=== PATIENT | male | born 1940 | race Caucasian/White ===

== ENCOUNTER 2019-06-28 09:55 | Inpatient (IN) | payer MEDICARE, BC ==
[~2019-06-28] VITALS: Ht 188 cm; Wt 86.4 kg
[2019-06-28] MEDS ORDERED: normal saline 1000ml 500 ML IV ONE (10:19)
[2019-06-28] MEDS ORDERED: aspirin 81mg tab.chew PO ONE (10:20)
[2019-06-28] MEDS ORDERED: diltiazem-NS 100mg/100ml 100 ML IV SCH ×2 (10:20→15:20)
[2019-06-28] MEDS ORDERED: diltiazem 5mg/ml 5ml inj. IV ONE (10:20)
[2019-06-28 10:45] LABS: BASOPHILS % (AUTO) 0.1 % (0-1); EOSINOPHILS % (AUTO) 0.2 % (0-6); HEMATOCRIT 50.6 % (42.0-52.0); HEMOGLOBIN 16.8 g/dl (14.0-17.9); LYMPHOCYTES # (AUTO) 0.3 X10'3 (1.1-4.8); LYMPHOCYTES % (AUTO) 2.6 % (21-51); MEAN CORPUSCULAR HGB CONC 33.1 g/dL (33.0-36.5); MEAN CORPUSCULAR VOLUME 81.5 FL (78-98); MEAN PLATELET VOLUME 8.4 FL (7.4-10.4); MONOCYTES # (AUTO) 0.8 X10'3 (0-0.9); NEUTROPHILS # (AUTO) 12.1 X10'3 (1.8-7.7); NEUTROPHILS % (AUTO) 91.1 % (42-75); PLATELET COUNT 60 X10'3 (140-440); RED BLOOD COUNT 6.21 X10'6 (4.70-6.10); RED CELL DISTRIBUTION WIDTH 15.5 % (11.5-14.5); WHITE BLOOD COUNT 13.2 X10'3 (4.5-11.0)
--- NOTE | 2019-06-28 10:46 | NUR ---
MD EDMOND MADE AWARE OF 5MG CARDIZEM GIVEN AT 1025, ORDERED TO NOT GIVE REMAINING 15MG. HR HAD DROPPED FROM 180 TO 117 PRIOR TO IV PUSH CARDIZEM. BP NOW 101/70, HR 109 WITH MD MOTT AWARE.
[2019-06-28 11:04] LABS: ALANINE AMINOTRANSFERASE 31 U/L (12-78); ALBUMIN/GLOBULIN RATIO 0.6 (1.1-1.5); ALKALINE PHOSPHATASE 111 IU/L (46-116); ANION GAP 26 (8-16); ASPARTATE AMINO TRANSFERASE 26 U/L (10-37); BILIRUBIN,TOTAL 0.6 MG/DL (0.1-1.0); BLOOD UREA NITROGEN 144 MG/DL (7-18); BUN/CREATININE RATIO 15.5 (5.4-32.0); CALCIUM 8.6 MG/DL (8.5-10.1); CHLORIDE 90 MMOL/L (99-107); CREATININE 9.32 MG/DL (0.60-1.10); GLUCOSE 187 MG/DL (70-104); MAGNESIUM 2.2 MG/DL (1.5-2.4); POTASSIUM 4.8 MMOL/L (3.5-5.1); SODIUM 131 MMOL/L (135-145); TOTAL PROTEIN 7.8 G/DL (6.4-8.2); eGFR 5 ML/MIN
--- NOTE | 2019-06-28 11:05 | NUR ---
MD De La Fuente at bedside, reported improvement in circulatory status.
[2019-06-28 11:07] LABS: TOTAL CARBON DIOXIDE 14.6 MMOL/L (24-32)
[2019-06-28 11:12] LABS: TOTAL CELLS COUNTED 100
[2019-06-28 11:15] LABS: ANISOCYTOSIS 1+; BURR CELLS 2+; PLATELET ESTIMATE DECREASED; TOXIC GRANULATION 1+; TOXIC VACUOLATION 2+
[2019-06-28] MEDS ORDERED: normal saline 1000ML IV soln IVB ONE (12:05)
[2019-06-28] MEDS ORDERED: ASPI-1053 PO (12:13)
--- NOTE | 2019-06-28 12:22 | NUR ---
SPOKE WITH MD EDMOND CONCERNING NS 1L BOLUS, LUNGS WET TO AUSCULTATION, ELEVATED CREATININE, AND BNP. MD EDMOND ORDERED FOR NS TO BE INFUSED AT 150ML/HR
[2019-06-28] MEDS: normal saline 1000ml 1,000 ML IV SCH ×3 (12:30→21:19)
[2019-06-28] MEDS ORDERED: potassium Cl 20 mEq SR tablet PO PRN ×2 (13:00)
[2019-06-28] MEDS ORDERED: mag hydrox/Alum hydrox/simeth 30ml oral suspension PO PRN (13:00)
[2019-06-28] MEDS ORDERED: magnesium 2GM in 50ml NS 50 ML IV PRN (13:00)
[2019-06-28] MEDS ORDERED: acetaminophen 325mg tablet PO PRN ×2 (13:00)
[2019-06-28] MEDS ORDERED: ondansetron/PF 4mg/2ml inj IV PRN (13:00)
[2019-06-28] MEDS ORDERED: CefTRIAXone 2gm/D5W 50ml 50 ML IV ONE (13:00)
[2019-06-28] MEDS ORDERED: magnesium hydroxide 30ml (MOM) UD suspension PO PRN (13:00)
[2019-06-28] MEDS ORDERED: magnesium Cl slow-release 64mg tablet PO PRN (13:00)
[2019-06-28] MEDS ORDERED: magnesium 4gm in 100ml NS 100 ML IV PRN (13:00)
[2019-06-28] MEDS ORDERED: potassium CL 10mEq/100ml bag 100 ML IV PRN ×2 (13:00)
--- NOTE | 2019-06-28 13:01 | NUR ---
FC inserted. Some difficulty upon insertion. Pt denies pain.
[2019-06-28 13:43] LABS: CLARITY,URINE CLOUDY (Clear); COLOR,URINE YELLOW (Yellow); GLUCOSE, URINE NEGATIVE (Neg); KETONES,URINE NEGATIVE (Neg); LEUKOCYTE ESTERASE ,URINE MODERATE (Neg); NITRITES, URINE NEGATIVE (Neg); OCCULT BLOOD,URINE LARGE (Neg); PH,URINE 8.5 (4.8-8.0); PROTEIN,URINE 100 mg/dl (Neg); UROBILINOGEN,URINE 0.2 E.U/dL (0.2-1.0)
[2019-06-28 13:48] LABS: UA COLLECTION TYPE FOLEY CATH
[2019-06-28 13:56] LABS: BACTERIA,URINE 4+ /HPF (Neg); MUCUS STRANDS NONE SEEN /LPF (Neg); RBC,URINE TNTC /HPF (0-2); SQUAMOUS EPITHELIAL CELL,UR FEW /LPF (FEW); WBC CLUMPS,URINE MANY /HPF (NEGATIVE); WBC,URINE TNTC /HPF (0-4)
--- NOTE | 2019-06-28 14:17 | NUR ---
PAGER ID: [phone] MESSAGE: please call me on pcu regarding new patient from RICHIE Hudson
[2019-06-28 15:51] VITALS: BP 108/71
[2019-06-28] MEDS ORDERED: heparin, porcine 5000 units/ml vial SQ SCH (16:00)
[2019-06-28 18:00] VITALS: BP 114/74
[2019-06-28] MEDS: lactobacillus rhamnosus 10,000 MMU CELLS/CAPSULE PO SCH (19:27)
[2019-06-28 19:37] LABS: ALBUMIN 2.4 G/DL (3.4-5.0); ANION GAP 19 (8-16); BLOOD UREA NITROGEN 149 MG/DL (7-18); BUN/CREATININE RATIO 18.2 (5.4-32.0); CALCIUM 7.7 MG/DL (8.5-10.1); CHLORIDE 98 MMOL/L (99-107); CREATININE 8.19 MG/DL (0.60-1.10); GLUCOSE 145 MG/DL (70-104); POTASSIUM 4.3 MMOL/L (3.5-5.1); SODIUM 133 MMOL/L (135-145); TOTAL CARBON DIOXIDE 16.2 MMOL/L (24-32); eGFR 6 ML/MIN
[2019-06-28 22:00] VITALS: BP 108/72
[2019-06-29 02:00] VITALS: BP 120/76
--- NOTE | 2019-06-29 02:11 | NUR ---
Patient converted from sinus to afib with rate in 150s-160s. Dr. Shi called and order for 5mg Cardizem push was administered. Will continue to monitor.
[2019-06-29] MEDS ORDERED: diltiazem 5mg/ml 5ml inj. IV ONE ×2 (02:30→04:15)
--- NOTE | 2019-06-29 03:07 | NUR ---
Patient rhythm remaining in afib with rate 120s-130s, pt asymptomatic. Dr. Colon notified and no new orders. Will continue to monitor.
[2019-06-29] MEDS: normal saline 1000ml 1,000 ML IV SCH ×3 (04:28→20:22)
--- NOTE | 2019-06-29 04:28 | NUR ---
Pt heart rate sustaining 140s-150s, BP 97/69. Dr. Shi notified and 5mg cardizem iv push ordered and administered. Will continue to monitor
--- NOTE | 2019-06-29 05:59 | NUR ---
[place] documentation: I have reviewed and agree with all interventions, assessments performed and documented by Amita PEREIRA. [place] Medication Administration: For this medication-pass time frame, all medication were reviewed, dispensed, administered and documented per hospital policy by Amita PEREIRA.
[2019-06-29 06:07] LABS: BASOPHILS % (AUTO) 0.2 % (0-1); EOSINOPHILS # (AUTO) 0.1 X10'3 (0-0.9); HEMATOCRIT 44.1 % (42.0-52.0); LYMPHOCYTES # (AUTO) 1.1 X10'3 (1.1-4.8); LYMPHOCYTES % (AUTO) 10.9 % (21-51); MEAN CORPUSCULAR HEMOGLOBIN 27.2 PG (27.0-31.0); WHITE BLOOD COUNT 9.8 X10'3 (4.5-11.0)
[2019-06-29 06:12] LABS: EOSINOPHILS % (AUTO) 0.7 % (0-6); MEAN CORPUSCULAR HGB CONC 33.9 g/dL (33.0-36.5); MEAN CORPUSCULAR VOLUME 80.2 FL (78-98); MEAN PLATELET VOLUME 8.6 FL (7.4-10.4); MONOCYTES # (AUTO) 1.9 X10'3 (0-0.9); MONOCYTES % (AUTO) 19.4 % (2-12); NEUTROPHILS # (AUTO) 6.8 X10'3 (1.8-7.7); NEUTROPHILS % (AUTO) 68.8 % (42-75); PLATELET COUNT 59 X10'3 (140-440); RED BLOOD COUNT 5.51 X10'6 (4.70-6.10); RED CELL DISTRIBUTION WIDTH 15.3 % (11.5-14.5)
[2019-06-29 06:15] LABS: ALBUMIN 2.2 G/DL (3.4-5.0); ANION GAP 18 (8-16); BLOOD UREA NITROGEN 123 MG/DL (7-18); BUN/CREATININE RATIO 26.1 (5.4-32.0); CALCIUM 8.1 MG/DL (8.5-10.1); CHLORIDE 106 MMOL/L (99-107); CREATININE 4.71 MG/DL (0.60-1.10); GLUCOSE 114 MG/DL (70-104); MAGNESIUM 2.4 MG/DL (1.5-2.4); POTASSIUM 3.5 MMOL/L (3.5-5.1); SODIUM 140 MMOL/L (135-145); TOTAL CARBON DIOXIDE 15.6 MMOL/L (24-32); eGFR 12 ML/MIN
--- NOTE | 2019-06-29 06:25 | NUR ---
Problems reprioritized. Patient report given, questions answered & plan of care reviewed with Prasanth PEREIRA.
--- NOTE | 2019-06-29 06:26 | NUR ---
Patient in room PCU 3016. I have received report from Bety PEREIRA and had the opportunity to ask questions and assume patient care.
[2019-06-29] MEDS: K and/or MAG REPLACEMENT MC SCH (06:36)
[2019-06-29 07:45] VITALS: BP 108/69
--- NOTE | 2019-06-29 07:48 | NUR ---
Call from telemetry rn stating pt converted from Afib to SR
[2019-06-29] MEDS: heparin, porcine 5000 units/ml vial SQ SCH ×3 (07:49→22:23)
[2019-06-29] MEDS: lactobacillus rhamnosus 10,000 MMU CELLS/CAPSULE PO SCH ×2 (07:54→20:37)
[2019-06-29] MEDS: CefTRIAXone 2gm/D5W 50ml 50 ML IV SCH (07:54)
[2019-06-29 11:00] VITALS: BP 123/82
[2019-06-29 15:00] VITALS: BP 135/86
[2019-06-29 15:09] LABS: ALBUMIN 2.2 G/DL (3.4-5.0); ANION GAP 12 (8-16); BLOOD UREA NITROGEN 109 MG/DL (7-18); BUN/CREATININE RATIO 31.6 (5.4-32.0); CALCIUM 7.5 MG/DL (8.5-10.1); CHLORIDE 110 MMOL/L (99-107); CREATININE 3.45 MG/DL (0.60-1.10); GLUCOSE 145 MG/DL (70-104); POTASSIUM 3.5 MMOL/L (3.5-5.1); SODIUM 143 MMOL/L (135-145); eGFR 17 ML/MIN
--- NOTE | 2019-06-29 16:13 | NUR ---
Pt plt 59, heparin held.
[2019-06-29 18:00] VITALS: BP 159/87
--- NOTE | 2019-06-29 18:10 | NUR ---
Patient in room PCU 3015Y. I have received report from KELLI Rader and had the opportunity to ask questions and assume patient care. Patient reverse to SNR from A-fib last night. I also received a call from lab stating that pt's blood culture tested gram + cocci cluster in anaerobic bottle in rt arm. Paged Dr. Mccauley (see notes). Will continue to monitor
--- NOTE | 2019-06-29 18:39 | NUR ---
Sent page to Dr. Mccauley PAGER ID: [phone] MESSAGE: Conrad Hudson, Room # 3016 A. Got a call from the lab stating that patient's blood culture tested positive for gram cocci in right arm.. It took 30 hours to detect in first bottle. Please advice. Kirill [phone] (210 character message out of a maximum of 240)
--- NOTE | 2019-06-29 18:42 | NUR ---
Problems reprioritized. Patient report given, questions answered & plan of care reviewed with JAYY PEREIRA AND HAI PEREIRA.
--- NOTE | 2019-06-29 18:48 | NUR ---
Sent to Dr. Mccauley PAGER ID: [phone] MESSAGE: Conrad Hudson; Room # 3016. Dr Mccauley here is the lab report: Gram positive cocci in clusters in anaerobic bottle. Thank you Kirill Veliz [phone]
[2019-06-29] MEDS: tamsulosin 0.4mg capsule PO SCH (20:37)
[2019-06-29 22:00] VITALS: BP 149/91
[2019-06-30 02:00] VITALS: BP 138/84
[2019-06-30] MEDS: normal saline 1000ml 1,000 ML IV SCH ×3 (04:41→18:49)
[2019-06-30 06:00] VITALS: BP_SYST 104; BP_SYST 148; BP_DIAS 55; BP_DIAS 84
--- NOTE | 2019-06-30 06:00 | NUR ---
Problems reprioritized. Patient report given, questions answered & plan of care reviewed with Nandini PEREIRA.
--- NOTE | 2019-06-30 06:13 | NUR ---
Problems reprioritized. Patient report given, questions answered & plan of care reviewed with KELLI Valiente. Pt is sleeping in stable condition. .
[2019-06-30 06:26] LABS: BASOPHILS % (AUTO) 0.3 % (0-1); EOSINOPHILS # (AUTO) 0.1 X10'3 (0-0.9); EOSINOPHILS % (AUTO) 1.8 % (0-6); HEMATOCRIT 40.9 % (42.0-52.0); HEMOGLOBIN 13.6 g/dl (14.0-17.9); LYMPHOCYTES % (AUTO) 13.1 % (21-51); MEAN CORPUSCULAR HGB CONC 33.2 g/dL (33.0-36.5); MEAN CORPUSCULAR VOLUME 81.4 FL (78-98); MEAN PLATELET VOLUME 8.1 FL (7.4-10.4); MONOCYTES # (AUTO) 1.3 X10'3 (0-0.9); MONOCYTES % (AUTO) 17.1 % (2-12); NEUTROPHILS # (AUTO) 5.2 X10'3 (1.8-7.7); NEUTROPHILS % (AUTO) 67.7 % (42-75); PLATELET COUNT 68 X10'3 (140-440); RED BLOOD COUNT 5.02 X10'6 (4.70-6.10); RED CELL DISTRIBUTION WIDTH 15.6 % (11.5-14.5); WHITE BLOOD COUNT 7.7 X10'3 (4.5-11.0)
--- NOTE | 2019-06-30 06:32 | NUR ---
Patient in room PCU 3016. I have received report from Carolyn and had the opportunity to ask questions and assume patient care.
[2019-06-30 06:45] LABS: ALBUMIN 2.1 G/DL (3.4-5.0); ANION GAP 11 (8-16); BLOOD UREA NITROGEN 78 MG/DL (7-18); BUN/CREATININE RATIO 37.1 (5.4-32.0); CALCIUM 7.8 MG/DL (8.5-10.1); CHLORIDE 112 MMOL/L (99-107); GLUCOSE 112 MG/DL (70-104); MAGNESIUM 2.1 MG/DL (1.5-2.4); POTASSIUM 3.7 MMOL/L (3.5-5.1); SODIUM 145 MMOL/L (135-145); TOTAL CARBON DIOXIDE 22.1 MMOL/L (24-32); eGFR 31 ML/MIN
[2019-06-30 07:52] LABS: PLATELET ESTIMATE DECREASED
[2019-06-30 07:53] LABS: ACANTHOCYTES 1+; ANISOCYTOSIS 1+; MICROCYTOSIS 1+
[2019-06-30] MEDS: heparin, porcine 5000 units/ml vial SQ SCH ×2 (08:00→16:00)
[2019-06-30] MEDS: lactobacillus rhamnosus 10,000 MMU CELLS/CAPSULE PO SCH ×2 (08:02→20:11)
[2019-06-30] MEDS: CefTRIAXone 2gm/D5W 50ml 50 ML IV SCH (08:03)
[2019-06-30] MEDS: K and/or MAG REPLACEMENT MC SCH (08:04)
[2019-06-30 11:00] VITALS: BP 152/86
--- NOTE | 2019-06-30 13:17 | NUR ---
Page sent to Dr. Garrick Hudson [phone] A FYI Heparin has been held since admit due to low platelet count. Platelets 68 this am. I wasn't sure if you were aware. Thanks, Nandini [facility] ext [phone]
[2019-06-30 16:29] VITALS: BP 156/44
--- NOTE | 2019-06-30 17:23 | NUR ---
New hire documentation: I have reviewed and agree with all interventions, assessments performed and documented by KELLI Crenshaw.
--- NOTE | 2019-06-30 18:27 | NUR ---
Problems reprioritized. Patient report given, questions answered & plan of care reviewed with KELLI Garcia.
--- NOTE | 2019-06-30 18:47 | NUR ---
Patient in room PCU 3012z. I have received report from KELLI Delatorre and had the opportunity to ask questions and assume patient care. Patient awake for bedside report and stable at this time. 150 mL/hr NS infusing per MD order. Will continue to monitor closely.
[2019-06-30 19:00] VITALS: BP 141/96
[2019-06-30] MEDS ORDERED: VANCOmycin 1250MG/NS 250ml Bag 250 ML IV SCH (20:00)
[2019-06-30] MEDS: tamsulosin 0.4mg capsule PO SCH (20:11)
[2019-06-30 23:00] VITALS: BP 148/82
[2019-07-01] MEDS: normal saline 1000ml 1,000 ML IV SCH ×2 (00:30→03:16)
[2019-07-01] MEDS: heparin, porcine 5000 units/ml vial SQ SCH ×3 (00:32→15:36)
[2019-07-01 06:00] VITALS: BP 155/92
[2019-07-01 06:00] LABS: BASOPHILS % (AUTO) 0.4 % (0-1); EOSINOPHILS # (AUTO) 0.2 X10'3 (0-0.9); EOSINOPHILS % (AUTO) 2.9 % (0-6); HEMATOCRIT 39.2 % (42.0-52.0); LYMPHOCYTES % (AUTO) 13.1 % (21-51); MEAN CORPUSCULAR HEMOGLOBIN 27.1 PG (27.0-31.0); MEAN CORPUSCULAR HGB CONC 33.1 g/dL (33.0-36.5); MEAN PLATELET VOLUME 7.9 FL (7.4-10.4); MONOCYTES # (AUTO) 0.8 X10'3 (0-0.9); NEUTROPHILS # (AUTO) 5.6 X10'3 (1.8-7.7); NEUTROPHILS % (AUTO) 72.6 % (42-75); PLATELET COUNT 95 X10'3 (140-440); RED BLOOD COUNT 4.79 X10'6 (4.70-6.10); RED CELL DISTRIBUTION WIDTH 15.5 % (11.5-14.5); WHITE BLOOD COUNT 7.7 X10'3 (4.5-11.0)
--- NOTE | 2019-07-01 06:19 | NUR ---
Problems reprioritized. Patient report given, questions answered & plan of care reviewed with KELLI LOWE.
[2019-07-01 06:22] LABS: ANION GAP 9 (8-16); BLOOD UREA NITROGEN 35 MG/DL (7-18); BUN/CREATININE RATIO 28.9 (5.4-32.0); CALCIUM 7.1 MG/DL (8.5-10.1); CHLORIDE 113 MMOL/L (99-107); CREATININE 1.21 MG/DL (0.60-1.10); GLUCOSE 132 MG/DL (70-104); MAGNESIUM 1.7 MG/DL (1.5-2.4); POTASSIUM 3.8 MMOL/L (3.5-5.1); SODIUM 144 MMOL/L (135-145); TOTAL CARBON DIOXIDE 21.7 MMOL/L (24-32); eGFR 58 ML/MIN
--- NOTE | 2019-07-01 06:37 | NUR ---
Patient in room PCU 3016. I have received report from Juju and had the opportunity to ask questions and assume patient care.
[2019-07-01] MEDS: K and/or MAG REPLACEMENT MC SCH (07:12)
[2019-07-01] MEDS: lactobacillus rhamnosus 10,000 MMU CELLS/CAPSULE PO SCH ×2 (07:15→20:23)
[2019-07-01] MEDS: CefTRIAXone 2gm/D5W 50ml 50 ML IV SCH (07:15)
[2019-07-01] MEDS: VANCOmycin 1250MG/NS 250ml Bag 250 ML IV SCH ×2 (08:11→20:24)
[2019-07-01 11:00] VITALS: BP 155/88
[2019-07-01 16:00] VITALS: BP 153/86
--- NOTE | 2019-07-01 18:13 | NUR ---
Problems reprioritized. Patient report given, questions answered & plan of care reviewed with jose.
--- NOTE | 2019-07-01 18:35 | NUR ---
Patient in room PCU 3016A. I have received report from KELLI Brooks and had the opportunity to ask questions and assume patient care. Patient awake for bedside report and is stable at this time. On 2L NC and saline locked. Will continue to monitor closely.
[2019-07-01 19:00] VITALS: BP 150/85
[2019-07-01] MEDS: tamsulosin 0.4mg capsule PO SCH (20:23)
[2019-07-01 23:00] VITALS: BP 150/89
--- NOTE | 2019-07-02 02:27 | NUR ---
1 unit Heparin SQ not administered due to decreased platelet count of 98. Will continue to monitor closely.
[2019-07-02 03:00] VITALS: BP 150/85
[2019-07-02 05:13] LABS: PSA, FREE 7.47 ng/mL
--- NOTE | 2019-07-02 06:13 | NUR ---
Problems reprioritized. Patient report given, questions answered & plan of care reviewed with KELLI Sanderson.
--- NOTE | 2019-07-02 07:14 | NUR ---
Patient in room PCU 3016. I have received report from KELLI Garcia and had the opportunity to ask questions and assume patient care. Pt is awake and alert. Will continue to monitor.
[2019-07-02] MEDS ORDERED: VANCOMYCIN LEVEL IV ONE ×2 (07:30→19:30)
[2019-07-02] MEDS: lactobacillus rhamnosus 10,000 MMU CELLS/CAPSULE PO SCH (07:56)
[2019-07-02] MEDS: heparin, porcine 5000 units/ml vial SQ SCH ×2 (07:58)
[2019-07-02] MEDS: CefTRIAXone 2gm/D5W 50ml 50 ML IV SCH (07:59)
[2019-07-02] MEDS: VANCOmycin 1250MG/NS 250ml Bag 250 ML IV SCH (07:59)
[2019-07-02] MEDS: K and/or MAG REPLACEMENT MC SCH (08:00)
[2019-07-02 08:29] LABS: BASOPHILS % (AUTO) 0.3 % (0-1); EOSINOPHILS # (AUTO) 0.2 X10'3 (0-0.9); EOSINOPHILS % (AUTO) 2.8 % (0-6); HEMATOCRIT 40.5 % (42.0-52.0); HEMOGLOBIN 13.4 g/dl (14.0-17.9); LYMPHOCYTES # (AUTO) 1.1 X10'3 (1.1-4.8); LYMPHOCYTES % (AUTO) 13.3 % (21-51); MEAN CORPUSCULAR HEMOGLOBIN 27.3 PG (27.0-31.0); MEAN CORPUSCULAR VOLUME 82.8 FL (78-98); MEAN PLATELET VOLUME 8.4 FL (7.4-10.4); MONOCYTES # (AUTO) 0.7 X10'3 (0-0.9); MONOCYTES % (AUTO) 8.3 % (2-12); NEUTROPHILS # (AUTO) 6.1 X10'3 (1.8-7.7); NEUTROPHILS % (AUTO) 75.3 % (42-75); PLATELET COUNT 137 X10'3 (140-440); RED BLOOD COUNT 4.89 X10'6 (4.70-6.10); RED CELL DISTRIBUTION WIDTH 15.2 % (11.5-14.5); WHITE BLOOD COUNT 8.1 X10'3 (4.5-11.0)
[2019-07-02 08:40] LABS: ALBUMIN 2.1 G/DL (3.4-5.0); ANION GAP 6 (8-16); BLOOD UREA NITROGEN 18 MG/DL (7-18); BUN/CREATININE RATIO 17.1 (5.4-32.0); CALCIUM 7.3 MG/DL (8.5-10.1); CHLORIDE 110 MMOL/L (99-107); CREATININE 1.05 MG/DL (0.60-1.10); GLUCOSE 128 MG/DL (70-104); MAGNESIUM 1.4 MG/DL (1.5-2.4); POTASSIUM 3.7 MMOL/L (3.5-5.1); SODIUM 141 MMOL/L (135-145); TOTAL CARBON DIOXIDE 25.4 MMOL/L (24-32); VANCOMYCIN,TROUGH 17.1 UG/ML (6.0-14.0); eGFR 68 ML/MIN
--- NOTE | 2019-07-02 09:10 | NUR ---
I was asked by Dr Mccauley to wean the patient off of O2. Patient's SPO2 was 93% on 1LNC. Patient placed on room air and SPO2 was 92-93%. Will return in 5 mins to recheck SPO2. MD orders are to titrate 02 to keep SPO2 between 90-94%.
--- NOTE | 2019-07-02 10:10 | NUR ---
Sent to Dr Mccauley PAGER ID: [phone] MESSAGE: RE: Conrad Hudson [id number]. FYI unless otherwise ordered: Heparin held this am. Plt 95, no PTT on file. -Maria E [phone]
[2019-07-02 11:00] VITALS: BP 165/95
[2019-07-02] MEDS ORDERED: FLO0.4C PO (11:47)
== END 2019-07-02 15:45 | disposition home health service (06) | DRG 682 ==
LOC: ER 09:55 → PCU 3S 14:28 → CMPBEDREQ 07-01 21:12
PROVIDERS: ADMIT Hospitalist; ATTEND Family Medicine
DX: N17.9 Acute kidney failure, unspecified (principal); I21.A1 Myocardial infarction type 2; E87.2 Acidosis; N13.6 Pyonephrosis; N13.30 Unspecified hydronephrosis; R09.02 Hypoxemia; I48.91 Unspecified atrial fibrillation; E86.0 Dehydration; Z79.82 Long term (current) use of aspirin
CPT/HCPCS: 36415; 71045; 76775; 80048; 80053; 80202; 81001; 83605; 83735; 83880; 84145; 84153; 84154; 84484; 85025; 87040; 87077; 87081; 87088; 93005; 93306; 96365; 96375; 97110; 97116; 97161; 99291; G0378; J0696; J1644; J3370; J3490; J7030

== ENCOUNTER 2019-07-31 07:23 | Day surgery (SDC) | payer MEDICARE, BC ==
[2019-07-29 10:38] LABS: BASOPHILS % (AUTO) 0.6 % (0-1); EOSINOPHILS # (AUTO) 0.1 X10'3 (0-0.9); EOSINOPHILS % (AUTO) 2.7 % (0-6); HEMATOCRIT 43.2 % (42.0-52.0); HEMOGLOBIN 13.8 g/dl (14.0-17.9); LYMPHOCYTES # (AUTO) 1.1 X10'3 (1.1-4.8); LYMPHOCYTES % (AUTO) 24.1 % (21-51); MEAN CORPUSCULAR HEMOGLOBIN 27.1 PG (27.0-31.0); MEAN CORPUSCULAR HGB CONC 32.1 g/dL (33.0-36.5); MEAN CORPUSCULAR VOLUME 84.4 FL (78-98); MEAN PLATELET VOLUME 6.9 FL (7.4-10.4); MONOCYTES # (AUTO) 0.4 X10'3 (0-0.9); MONOCYTES % (AUTO) 9.2 % (2-12); NEUTROPHILS # (AUTO) 2.8 X10'3 (1.8-7.7); NEUTROPHILS % (AUTO) 63.4 % (42-75); PLATELET COUNT 190 X10'3 (140-440); RED BLOOD COUNT 5.11 X10'6 (4.70-6.10); RED CELL DISTRIBUTION WIDTH 15.7 % (11.5-14.5); WHITE BLOOD COUNT 4.5 X10'3 (4.5-11.0)
[2019-07-29 10:50] LABS: PARTIAL THROMBOPLASTIN TIME 28 SECONDS (22-32)
[2019-07-29 10:53] LABS: ALANINE AMINOTRANSFERASE 24 U/L (12-78); ALBUMIN 2.9 G/DL (3.4-5.0); ALBUMIN/GLOBULIN RATIO 0.6 (1.1-1.5); ALKALINE PHOSPHATASE 100 IU/L (46-116); ANION GAP 5 (8-16); ASPARTATE AMINO TRANSFERASE 19 U/L (10-37); BILIRUBIN,TOTAL 0.3 MG/DL (0.1-1.0); BLOOD UREA NITROGEN 18 MG/DL (7-18); BUN/CREATININE RATIO 14.5 (5.4-32.0); CALCIUM 8.5 MG/DL (8.5-10.1); CHLORIDE 107 MMOL/L (99-107); CREATININE 1.24 MG/DL (0.60-1.10); GLUCOSE 125 MG/DL (70-104); POTASSIUM 4.9 MMOL/L (3.5-5.1); SODIUM 142 MMOL/L (135-145); TOTAL CARBON DIOXIDE 30.2 MMOL/L (24-32); TOTAL PROTEIN 7.6 G/DL (6.4-8.2); eGFR 56 ML/MIN
[2019-07-31] VITALS (12 sets, daily range): BP systolic 115–171; BP diastolic 84–99
[~2019-07-31] VITALS: Ht 188 cm; Wt 85.4 kg
[~2019-07-31 07:23] MED LIST: ASPI-1053 PO; FLO0.4C PO
[2019-07-31] MEDS ORDERED: LORazepam 0.5 MG tablet PO PRN (07:55)
[2019-07-31] MEDS ORDERED: diphenhydrAMINE 25mg capsule PO PRN (07:55)
[2019-07-31] MEDS ORDERED: nitroGLYCERIN 0.4mg SUBLingual tab SL PRN (07:55)
[2019-07-31] MEDS ORDERED: MULT-933 PO (08:32)
[2019-07-31] MEDS ORDERED: PHEN30SP5 NS (08:32)
[2019-07-31] MEDS ORDERED: FURO-150 PO (08:32)
[2019-07-31] MEDS ORDERED: FLO0.4C PO (08:32)
[2019-07-31] MEDS ORDERED: ASPI-974 PO (08:32)
[2019-07-31] MEDS ORDERED: PROP1DRO7 OP (08:32)
[2019-07-31] MEDS ORDERED: LIDOcaine 1% (10mg/ml)w/preservative injection 20ml MDV ONE (09:45)
[2019-07-31] MEDS ORDERED: iohexol 350MG/ML 100ml bottle IV ONE (09:45)
[2019-07-31] MEDS ORDERED: iohexol 350 MG/ML 50ML vial IV ONE ×2 (09:45→10:38)
[2019-07-31] MEDS ORDERED: fentaNYL/PF 50MCG/1 ML 2ML syringe ONE (09:45)
[2019-07-31] MEDS ORDERED: midazolam 2 mg/2 ml injection ONE (09:45)
[2019-07-31] MEDS ORDERED: OXAZEpam 15mg capsule PO PRN (11:50)
[2019-07-31] MEDS ORDERED: proCHLORperazine 10 MG/2 ml inj IV PRN (11:50)
[2019-07-31] MEDS ORDERED: ondansetron/PF 4mg/2ml inj IV PRN (11:50)
[2019-07-31] MEDS ORDERED: normal saline 1000ml 1,000 ML IV SCH (11:50)
[2019-07-31] MEDS ORDERED: HYDROcodone/acetaminophen 10/325mg tab PO PRN (11:50)
[2019-07-31] MEDS ORDERED: HYDROcodone/acetaminophen 5mg/325mg tablet PO PRN (11:50)
== END 2019-07-31 17:50 | disposition home or self-care (01) ==
LOC: SSTAY O 07:23
PROVIDERS: ATTEND Internal Medicine Cardiovascular Disease
DX: R94.39 Abnormal result of other cardiovascular function study (principal); I25.10 Atherosclerotic heart disease of native coronary artery without angina pectoris; I77.819 Aortic ectasia, unspecified site; I77.1 Stricture of artery; I48.0 Paroxysmal atrial fibrillation; J44.9 Chronic obstructive pulmonary disease, unspecified; E78.5 Hyperlipidemia, unspecified; Z79.01 Long term (current) use of anticoagulants; Z79.899 Other long term (current) drug therapy; Z87.891 Personal history of nicotine dependence
CPT/HCPCS: 36415; 71046; 80053; 85025; 85610; 85730; 93005; 93458; 93567; 99152; 99153; C1769; J1644; J2001; J2250; J3010; Q0163; Q9967; A4620; A6258

== ENCOUNTER 2019-12-27 15:06 | Emergency (ER) | payer MEDICARE, BC ==
[~2019-12-27] VITALS: Ht 190.5 cm; Wt 93.2 kg
[~2019-12-27 15:06] MED LIST changes: +ASPI-974 PO; +FURO-150 PO; +MULT-933 PO; +PHEN30SP5 NS; +PROP1DRO7 OP
[2019-12-27 17:21] LABS: ALANINE AMINOTRANSFERASE 39 U/L (12-78); ALBUMIN 3.8 G/DL (3.4-5.0); ALBUMIN/GLOBULIN RATIO 0.8 (1.1-1.5); ALKALINE PHOSPHATASE 113 IU/L (46-116); ANION GAP 5 (8-16); ASPARTATE AMINO TRANSFERASE 35 U/L (10-37); BILIRUBIN,TOTAL 0.6 MG/DL (0.1-1.0); BLOOD UREA NITROGEN 16 MG/DL (7-18); BUN/CREATININE RATIO 13.3 (5.4-32.0); CALCIUM 9.2 MG/DL (8.5-10.1); CHLORIDE 106 MMOL/L (99-107); GLUCOSE 119 MG/DL (70-104); SODIUM 141 MMOL/L (135-145); TOTAL PROTEIN 8.6 G/DL (6.4-8.2); eGFR 59 ML/MIN
[2019-12-27] MEDS ORDERED: amLODIPine 5mg tablet PO ONE (17:35)
[2019-12-27] MEDS ORDERED: AMLO2.5T2 PO (17:35)
[2019-12-27] MEDS ORDERED: amLODIPine 2.5mg tablet PO ONE (17:40)
[2019-12-27 17:49] VITALS: BP 199/110
== END 2019-12-27 17:50 | disposition home or self-care (01) ==
LOC: ER 15:06
DX: I10 Essential (primary) hypertension (principal); Z85.46 Personal history of malignant neoplasm of prostate; Z79.82 Long term (current) use of aspirin; Z79.899 Other long term (current) drug therapy
CPT/HCPCS: 36415; 80053; 99283